=== PATIENT | male | born 1965 | race Caucasian/White ===

== ENCOUNTER → 2018-01-17 11:05 | Outpatient (CLI) | payer MEDICARE, SELFPAY ==
[2018-01-17 13:13] LABS: AST(SGOT) 21 U/L (15-37); Alanine Aminotransfer ALT/SGPT 38 U/L (16-61); Albumin, Serum 3.9 g/dL (3.2-5.0); Alkaline Phosphatase 95 U/L (45-117); Anion Gap 10 (5-15); BUN 21 mg/dL (7-18); BUN/Creat Ratio 31.7 RATIO (10-20); Calcium,Total 8.9 mg/dL (8.5-10.1); Chloride 102 mmol/L (98-107); Cholesterol 182 mg/dL (200); Creatinine, Serum 0.66 mg/dL (0.70-1.30); EST Glomerular Filtration Rate 135 mL/min (>60); Est Glom Filt Rate - Afr Amer 163 mL/min (>60); Globulin 3.9 g/dL (2.2-4.2); Glucose 103 mg/dL (74-106); High Density Lipoprotein 36 mg/dL; Potassium 3.7 mmol/L (3.5-5.1); Protein, Total 7.8 g/dL (6.4-8.2); Sodium Level 137 mmol/L (136-145); Triglycerides 159 mg/dL; Very Low Density Lipoprotein 32 mg/dL (5-40)
== END ==
PROVIDERS: Family Provider Family Medicine; PCP Family Medicine; Visit Provider Family Medicine
DX: E11.65 Type 2 diabetes mellitus with hyperglycemia (principal)
CPT/HCPCS: 36415; 80053; 80061; 84443

== ENCOUNTER 2018-03-23 09:55 | Outpatient (RCR) | payer MEDICARE, SELFPAY ==
--- NOTE | 2018-03-23 10:52 | HP.PTEVAL_ITS ---
Patient's Visit Information RADHA DEL CID is a 52 year old M referred to Physical Therapy by Missael Mortensen with a diagnosis of Paraplegia. 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 He has had many chairs and this one was 5 years old as of March 17. This chair is falling apart- it has been fixed many times and there are bolts/nuts that are no longer fixable. He is frustrated with the process but knows its necessary. He lives I in a first floor handicapped accessible apartment. He drives and is fully I in his chair. He has no home health aides. He does all his own cooking, cleaning and laundry. He is using motion mobility for his new chair. Does have pain in the back sometimes due to his scoliosis. He performs all transfers using his upper body no slide board or lifts. - Objective Posture: FH, RS- does slump to the left due to scoliotic curve. Gait: patient is non ambulatory- bilateral AKA. Transfers: transfers mostly to the left side or forwards- uses upper body to lift and propel himself to the other surface. Observation: more stump on the right vs. left and pants on ripped where the right LE rubs on the wheel of the chair. Propulsion of w/c: I with bilateral UE. ROM: WFL- right hip is rotated out and pt reports hip dysplasia- He can obtain a flat position but does have significant scoliotic curve. UE: WNL in all planes. Strength: UE: 5/5 throughout shoulder/elbow/wrist and clinical quality assurance associate is WNL. Scap: fair Core: fair - Goals Goal 1:: Patient will obtain a new w/c that is custom fit to address all needs. Goal Time Frame: 4-6 Weeks - Rehabilitation Potential Physical Therapy Diagnosis: Patient presents with hypomobility- he has decreased mobility secondary to AKA and need for a new w/c. Rehabilitation Potential: Good - Anticipated Interventions Thank you for the opportunity to evaluate your patient. For Medicare and Medicare HMO plans, please review the plan of care and approve it. It will need to be FAXED BACK to us at [phone] for Medicare purposes. Please let me know if there are questions or concerns regarding this plan of care. Physician Signature: Date:
--- NOTE | 2018-04-20 08:43 | HP.PT.NRP ---
HP - Discharge Summary (1) - Patient Information RADHA DEL CID was seen in my office for initial evaluation on 03/23/18. The following Plan of Care was established for this patient: Initial Frequency: 1x/Week Initial Duration: 1 Week This patient was last seen in our office . Pertinent comments regarding their Physical therapy will appear below: At this point I will be discontinuing this patient from physical therapy. I would be happy to see this patient again in the future if found appropriate by the physician. Thank you! Winnie Salamanca
== END 2018-03-23 19:00 | disposition home or self-care (01) ==
LOC: PT 09:55
PROVIDERS: Family Provider Family Medicine; PCP Family Medicine; Visit Provider Family Medicine
DX: G82.20 Paraplegia, unspecified (principal)
CPT/HCPCS: 97161

== ENCOUNTER → 2018-04-18 11:06 | Outpatient (CLI) | payer MEDICARE, SELFPAY ==
[2018-04-18 12:32] LABS: Anion Gap 8 (5-15); BUN 28 mg/dL (7-18); BUN/Creat Ratio 31.4 RATIO (10-20); Calcium,Total 9.2 mg/dL (8.5-10.1); Chloride 104 mmol/L (98-107); Cholesterol 159 mg/dL (200); Creatinine, Serum 0.89 mg/dL (0.70-1.30); EST Glomerular Filtration Rate 95 mL/min (>60); Est Glom Filt Rate - Afr Amer 115 mL/min (>60); Glucose 94 mg/dL (74-106); High Density Lipoprotein 33 mg/dL; Potassium 3.8 mmol/L (3.5-5.1); Sodium Level 138 mmol/L (136-145); Triglycerides 156 mg/dL; Very Low Density Lipoprotein 31 mg/dL (5-40)
== END ==
PROVIDERS: Family Provider Family Medicine; PCP Family Medicine; Visit Provider Family Medicine
DX: E78.00 Pure hypercholesterolemia, unspecified (principal); E11.65 Type 2 diabetes mellitus with hyperglycemia; I10 Essential (primary) hypertension
CPT/HCPCS: 80048; 80061

== ENCOUNTER → 2018-09-29 19:58 | Outpatient (CLI) | payer MEDICARE, SELFPAY ==
[2018-09-29 20:13] LABS: Color, Urine Yellow (Yellow); Glucose, Dipstick Normal (Normal); Ketone-Dipstick 5 mg/dl (Negative); Leukocyte Esterase-Dipstick 500 /ul (Negative); Nitrite-Dipstick Negative (Negative); Occult Blood-Urine 250 /ul (Negative); Protein-Dipstick 100 mg/dl (Negative); Specific Gravity, Urine 1.015 (1.002-1.030); Urine Bilirubin Dipstick Negative (Negative); Urine Clarity Cloudy (Clear); Urine Urobilinogen 1 mg/dl (Normal)
--- OUTSIDE RECORDS SUMMARY | 2018-11-24 23:38 | XMS RPT_ITS ---
:1965 Author Organization [facility] Care Team Providers Name Role Phone Missael Mortensen Attending Unavailable Missael Mortensen Primary Care Unavailable Missael Mortensen Attending Unavailable Missael Mortensen Primary Care Unavailable Missael Mortensen Referring Unavailable Missael Mortensen Attending Unavailable Missael Mortensen Primary Care Unavailable Missael Mortensen Attending Unavailable Missael Mortensen Primary Care Unavailable Missael Mortensen Referring Unavailable PROBLEMS PROBLEMS DATE TYPE CONDITION / CODE ATTENDING STATUS SOURCE 09/30/2018 Unknown 596.54 - Neurogenic [place], Active [place] bladder NOS / [facility] 596.54(ICD-9) Hospital Repository 09/30/2018 Unknown 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 CLEAN CATCH TYPE CODE TESTS RESULT OUT OF RANGE REFERENCE UNITS LAB L400.3000 Yellow COLOR Normal Yellow LAB L400.3050 Clear Normal CLARITY Cloudy LAB L400.3200 Normal mg/dl Normal GLUCOSE, UR Normal LAB L400.3300 Negative mg/dL Normal BILIRUBIN URINE Negative LAB L400.3400 Negative mg/dl High 5 KETONE UR LAB L400.3465 1.002-1.030 Normal SP.GR. DIPSTX 1.015 LAB L400.3550 5.0 - 8.0 pH UR Normal 6.0 LAB L400.3600 Negative mg/dl High PROT DIPSTX 100 LAB L400.3700 Normal mg/dl High 1 UROBILI LAB L400.3750 Negative Normal NITRITE UR Negative LAB L400.3780 Negative /ul High OCCULT BLOOD-UR 250 LAB L400.3800 Negative /ul High LEUK ESTERASE 500 Performed By: #### L400.2010 #### [facility] [address] [place], [address] Observed: 09/29/2018 Status: F Source: [place] CULTURE, URINE 4:00 PM [facility] REPOSITORY Urine Culture ORGANISM 1: Acinetobacter baumannii [place] Count >100,000 Acinetobacter baumannii: REACTION Cefepime $ 4 S Ceftazidime *NF 8 S Ceftriaxone $ 16 I Ciprofloxacin $ <=0.25 S Gentamicin $ <=1 S Imipenem *NF <=0.25 S Levofloxacin $ <=0.12 S Tobramycin $ <=1 S Trimethoprim/Sulfametho $ <=20 S (NF) indicates non-formulary drug at [facility]. Approval by Infectious Disease Specialist required before non-formulary drugs may be ordered and/or dispensed. Performed By: #### M100.0650 #### [facility] [address] [place], [address] BASIC METABOLIC Collected: 04/18/2018 Status: F Source: [place] PROFILE (BMP) 11:08 AM [facility] REPOSITORY Order Comment: Order Date: 04/18/18 Order Info: [id number] - BMP Order Info: [id number] - LIPID TYPE CODE TESTS RESULT OUT OF RANGE REFERENCE UNITS LAB L501.0100 74-106 mg/dL Normal GLU 94 Result Comment: Please note revised GLUCOSE reference range effective 2017. LAB L501.1000 7-18 mg/dL High BUN 28 LAB L501.1100 0.70-1.30 mg/dL Normal CREAT,SERUM 0.89 Result Comment: The validity of the calculated GFR AND GFRAA in patients over 70 years has not been determined. Clinical correlation is essential. LAB L501.1110 >60 mL/min Normal EST GFR 95 Result Comment: Non- GFR Calc LAB L501.1115 >60 mL/min Normal EST GFR - AA 115 Result Comment: GFR Calc LAB L501.1300 10-20 RATIO High BUN/CRE 31.4 LAB L501.2200 8.5-10.1 mg/dL CA Normal 9.2 LAB L501.5300 136-145 mmol/L NA Normal 138 LAB L501.5600 3.5-5.1 mmol/L K Normal 3.8 LAB L501.5900 98-107 mmol/L CL Normal 104 LAB L501.6100 21.0-32.0 mmol/L Normal CO2 26.0 LAB L501.6200 5-15 Normal GAP 8 Performed By: #### L500.2500, L500.4100 #### [facility] [address] [place], [address] LIPID PROFILE Collected: 04/18/2018 Status: F Source: [place] 11:08 AM [facility] REPOSITORY Order Comment: Order Date: 04/18/18 Order Info: [id number] - BMP Order Info: [id number] - LIPID TYPE CODE TESTS RESULT OUT OF RANGE REFERENCE UNITS LAB L501.4900 200 mg/dL Normal CHOL 159 Result Comment: <200 mg/dL Desirable 200-240 mg/dL Borderline >240 mg/dL High Risk LAB L501.5000 mg/dL Normal TRIG 156 Result Comment: The drugs N-Acetylcysteine and Metamizole may falsely depress this assay. Serum Triglycerides Reference Interval Normal <150 mg/dL Borderline high 150 - 199 mg/dL High 200 - 499 mg/dL Very High > or = 500 mg/dL LAB L501.6400 mg/dL Low HDL 33 Result Comment: The drugs N-Acetylcysteine and Metamizole may falsely depress this assay. Reference Range HDL <40 mg/dL Low HDL Cholesterol HDL >or= 60 mg/dL High HDL Cholesterol LAB L501.6500 0-130 mg/dL Normal LDL 95 LAB L501.6600 5-40 mg/dL Normal VLDL 31 Performed By: #### L500.2500, L500.4100 #### [facility] [address] [place], [address] INITAL EVALUATION (1) Observed: 03/23/2018 Status: F Source: [place] - PT 10:52 AM [facility] REPOSITORY [facility] [address] [place], [place] [address] Fax REHABILITATION SERVICES INITIAL EVALUATION MR#: [id number] Acct: [id number] Name: ZAC DEL CID Rep #: [id number] : 1965 52 From: Winnie Salamanca DPT Referring Dr.: Missael Mortensen MD Status: REG RCR Insurance: MEDICARE PART A B SELF PAY INSURANCE Patient's Visit Information ZAC DEL CID is a 52 year old M referred to Physical Therapy by Missael Mortensen with a diagnosis of Paraplegia. 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 He has had many chairs and this one was 5 years old as of March 17. This chair is falling apart- it has been fixed many times and there are bolts/nuts that are no longer fixable. He is frustrated with the process but knows its necessary. He lives I in a first floor handicapped accessible apartment. He drives and is fully I in his chair. He has no home health aides. He does all his own cooking, cleaning and laundry. He is using motion mobility for his new chair. Does have pain in the back sometimes due to his scoliosis. He performs all transfers using his upper body no slide board or lifts. - Objective Posture: FH, RS- does slump to the left due to scoliotic curve. Gait: patient is non ambulatory- bilateral AKA. Transfers: transfers mostly to the left side or forwards- uses upper body to lift and propel himself to the other surface. Observation: more stump on the right vs. left and pants on ripped where the right LE rubs on the wheel of the chair. Propulsion of w/c: I with bilateral UE. ROM: WFL- right hip is rotated out and pt reports hip dysplasia- He can obtain a flat position but does have significant scoliotic curve. UE: WNL in all planes. Strength: UE: 5/5 throughout shoulder/elbow/wrist and dressmaker garment fitter is WNL. Scap: fair Core: fair - Goals Goal 1:: Patient will obtain a new w/c that is custom fit to address all needs. Goal Time Frame: 4-6 Weeks - Rehabilitation Potential Physical Therapy Diagnosis: Patient presents with hypomobility- he has decreased mobility secondary to AKA and need for a new w/c. Rehabilitation Potential: Good - Anticipated Interventions Thank you for the opportunity to evaluate your patient. For Medicare and Medicare HMO plans, please review the plan of care and approve it. It will need to be FAXED BACK to us at [phone] for Medicare purposes. Please let me know if there are questions or concerns regarding this plan of care. Physician Signature: Date: <Electronically signed by Winnie Salamanca DPT> 03/23/18 1052 CC: Missael Mortensen MD ELR Signed For Medicare only, by signing this I certify the plan of care. Physicians Signature Date COMPREHENSIVE METABOLIC Collected: 01/17/2018 Status: F Source: [place] WONG 11:10 AM [facility] REPOSITORY Order Comment: Order Date: 10/05/17 Order Info: [id number] - CMP Order Info: [id number] - LIPID Order Info: [id number] - TSH TYPE CODE TESTS RESULT OUT OF RANGE REFERENCE UNITS LAB L501.0100 74-106 mg/dL Normal GLU 103 Result Comment: Fasting Glucose result from 100 to 125 mg/dL suggests IMPAIRED HOMEOSTASIS per A.D.A. criteria. Please note revised GLUCOSE reference range effective 2017. LAB L501.1000 7-18 mg/dL High BUN 21 LAB L501.1100 0.70-1.30 mg/dL Low CREAT,SERUM 0.66 Result Comment: The validity of the calculated GFR AND GFRAA in patients over 70 years has not been determined. Clinical correlation is essential. LAB L501.1110 >60 mL/min Normal EST GFR 135 Result Comment: Non- GFR Calc LAB L501.1115 >60 mL/min Normal EST GFR - AA 163 Result Comment: GFR Calc LAB L501.1300 10-20 RATIO High BUN/CRE 31.7 LAB L501.1500 6.4-8.2 g/dL T Normal PROT 7.8 LAB L501.1800 3.2-5.0 g/dL Normal ALB 3.9 LAB L501.1950 2.2-4.2 g/dL Normal GLOB 3.9 LAB L501.2000 0.9-2.4 RATIO Normal A/G 1.0 LAB L501.2200 8.5-10.1 mg/dL CA Normal 8.9 LAB L501.4100 15-37 U/L Normal AST 21 LAB L501.4305 45-117 U/L Normal ALK P 95 LAB L501.4405 16-61 U/L Normal ALT 38 Result Comment: Please note revised ALT reference range effective 2017. LAB L501.4600 0.20-1.00 mg/dL Normal T BILI 0.40 LAB L501.5300 136-145 mmol/L Normal NA 137 LAB L501.5600 3.5-5.1 mmol/L Normal K 3.7 LAB L501.5900 98-107 mmol/L Normal CL 102 LAB L501.6100 21.0-32.0 mmol/L Normal CO2 25.0 LAB L501.6200 5-15 Normal GAP 10 Performed By: #### L500.4050, L500.4100, L501.9520 #### [facility] [address] [place], [address] LIPID PROFILE Collected: 01/17/2018 Status: F Source: [place] 11:10 AM [facility] REPOSITORY Order Comment: Order Date: 10/05/17 Order Info: [id number] - CMP Order Info: [id number] - LIPID Order Info: [id number] - TSH TYPE CODE TESTS RESULT OUT OF RANGE REFERENCE UNITS LAB L501.4900 200 mg/dL Normal CHOL 182 Result Comment: <200 mg/dL Desirable 200-240 mg/dL Borderline >240 mg/dL High Risk LAB L501.5000 mg/dL Normal TRIG 159 Result Comment: The drugs N-Acetylcysteine and Metamizole may falsely depress this assay. Serum Triglycerides Reference Interval Normal <150 mg/dL Borderline high 150 - 199 mg/dL High 200 - 499 mg/dL Very High > or = 500 mg/dL LAB L501.6400 mg/dL Low HDL 36 Result Comment: The drugs N-Acetylcysteine and Metamizole may falsely depress this assay. Reference Range HDL <40 mg/dL Low HDL Cholesterol HDL >or= 60 mg/dL High HDL Cholesterol LAB L501.6500 0-130 mg/dL Normal LDL 114 LAB L501.6600 5-40 mg/dL Normal VLDL 32 Performed By: #### L500.4050, L500.4100, L501.9520 #### [facility] [address] [facility] [place], [place], [address] THYROID STIM HORMONE Collected: 01/17/2018 Status: F Source: [place] (TSH) 11:10 AM [facility] REPOSITORY Order Comment: Order Date: 10/05/17 Order Info: [id number] - CMP Order Info: [id number] - LIPID Order Info: [id number] - TSH TYPE CODE TESTS RESULT OUT OF RANGE REFERENCE UNITS LAB L501.9520 0.358-3.74 uIU/mL Normal TSH 2.40 Performed By: #### L500.4050, L500.4100, L501.9520 #### [facility] [address], [place], [address] ALLERGIES ALLERGIES No Allergies Records FoundENCOUNTERS ENCOUNTERS ADMIT/DISCHARGE ACCOUNT ADMITTING ENCOUNTER [facility] 09/29/2018 [id number] Ambulatory [address]:LABSPEC Repository 04/18/2018 [id number] Ambulatory [place] [facility] ing:MFPLAB Repository 03/23/2018/ [id number] Ambulatory [place] [facility] ing:PT Repository 01/17/2018 [id number] Ambulatory [place] 0 [facility] ing:MFPLAB Repository PAYERS PAYERS ENCOUNTER GUARANTOR PAYER SUBSCRIBER SOURCE 09/29/2018 Zac O Primary Zac Jarrell [id number] Old Insurance:MEDICARE DayeDOB: [facility] [id number] Number: Repository [id number]: 330 [id number] [phone] () Date:2018-09-29 09/29/2018 Secondary NOT GIVENUNK [place] Insurance:SELF PAY [facility] [place] Number: Effective Repository Date:2018-09-29 04/18/2018 Zac O Primary Zac Jarrell [id number] Old Insurance:MEDICARE DayeDOB: [facility] [id number], [place] Number: Repository [id number]: 330 [id number] [phone] () Date:2018-04-18 04/18/2018 Secondary NOT GIVENUNK [place] Insurance:SELF PAY [facility] [place]) Number: Effective Repository Date:2018-04-18 03/23/2018 Zac O Primary Zac Jarrell [id number] Old Insurance:MEDICARE DayeDOB: [facility] [id number], [place] Number: Repository [id number]: 330 [id number] [phone] () Date:2012-12-30 03/23/2018 Secondary NOT GIVENUNK [place] Insurance:SELF PAY [facility], [place]) Number: Effective Repository Date:2018-03-17 01/17/2018 Zac O Primary Zac Jarrell [id number] Old Insurance:MEDICARE DayeDOB: [facility] [id number] Number: Repository [id number]: [phone] [id number] [phone] () Date:2018-01-17 01/17/2018 Secondary NOT GIVENUNK [place] Insurance:SELF PAY [facility]: Effective Repository Date:2018-01-17
== END ==
PROVIDERS: Family Provider Family Medicine; PCP Family Medicine; Referring Provider Family Medicine; Visit Provider Family Medicine
DX: N31.9 Neuromuscular dysfunction of bladder, unspecified (principal)
CPT/HCPCS: 81002; 87077; 87086; 87088; 87186

== ENCOUNTER → 2018-12-06 09:26 | Outpatient (CLI) | payer MEDICARE, SELFPAY ==
--- NOTE | 2018-12-06 09:31 | RAD_ITS ---
STUDY: X-RAY - LUMBAR SPINE REASON FOR EXAM: Male, 52 years old. Back pain and right hip pain. TECHNIQUE: 3 AP view(s) of the lumbar spine were obtained. COMPARISON: None FINDINGS: . There is a marked levoscoliosis of the lumbar spine. Prior Monteiro uzma fixation. There is evidence of a fracture through the 2 Monteiro rods at the level of the T12-L1 level. Normal vertebral bodies and endplates. There is multi-level degenerative disc disease with multi-level disc space narrowing. The soft tissue structures are unremarkable. RAD/L/S Spine Min 4 Views IMPRESSION: Moderate degree of the levoscoliosis. Fracture of the Monteiro uzma fixation device at the T12-L1 level. Electronically Signed: Michael Disla MD at 15:04 EST , Service support ,
== END ==
PROVIDERS: Family Provider Family Medicine; PCP Family Medicine; Referring Provider Family Medicine; Visit Provider Family Medicine
DX: M54.40 Lumbago with sciatica, unspecified side (principal)
CPT/HCPCS: 72110

== ENCOUNTER → 2019-01-27 15:42 | Outpatient (CLI) | payer MEDICARE, SELFPAY ==
--- NOTE | 2019-01-27 15:51 | RAD_ITS ---
STUDY: X-RAY CHEST REASON FOR EXAM: Male, 53 years old. Chest tightness. Acute bronchitis. TECHNIQUE: AP and lateral views of the chest. COMPARISON: Comparison is made with prior study dated March 05, 2016. FINDINGS: Elevation of the right hemidiaphragm. Increased markings with areas of confluence of the right lung base suggestive of right basilar atelectasis and/or early infiltrate. The left lung is clear. There is no demonstrated pleural abnormality. Normal size heart. Normal mediastinum and justin. Normal visualized pulmonary arteries. Normal visualized aortic arch and descending thoracic aorta. Prior Lupe uzma fixation of the lower thoracic and upper lumbar vertebrae. Normal visualized ribs, clavicles, and shoulders. There is no demonstrated abnormality of the visualized soft tissue structures of the upper abdomen. RAD/Chest PA and Lateral IMPRESSION: Elevation of the right hemidiaphragm with right basilar atelectasis and/or infiltrate. Electronically Signed: Michael Disla, at 8:40 EDT , Service support ,
== END ==
PROVIDERS: Family Provider Family Medicine; PCP Family Medicine; Referring Provider Family Medicine; Visit Provider Family Medicine
DX: J20.9 Acute bronchitis, unspecified (principal)
CPT/HCPCS: 71046

== ENCOUNTER 2019-03-17 06:39 | Inpatient (IN) | payer MEDICARE, SELFPAY ==
[2019-03-17] VITALS (22 sets, daily range): BP systolic 100–160; BP diastolic 65–97; PULSE 80–102; RESP 12–18; TEMP 36.5–36.8; O2SAT 95–97; BMI 116.8; BMI 81.2
--- NOTE | 2019-03-17 06:57 | EKG12_ITS ---
Test Reason : CP Blood Pressure : / mmHG Vent. Rate : 096 BPM Atrial Rate : 096 BPM P-R Int : 126 ms QRS Dur : 082 ms QT Int : 322 ms P-R-T Axes : 072 142 112 degrees QTc Int : 406 ms Sinus rhythm with occasional Premature ventricular complexes Right axis deviation Low voltage QRS Nonspecific ST and T wave abnormality Abnormal ECG Confirmed by LIN CARRANZA, BONITA ([id number]), science editor SHAISTA ASHER ([id number]) on 03/20/2019 4:06:49 PM Referred By: MARLENE Confirmed By:BONITA CEBALLOS MD
[2019-03-17 07:05] LABS: Absolute Lymphocyte Count 4.07 X10^3/ul (0.83-4.51); Absolute Neutrophil Count 6.8 X10^3/uL (2.0-7.7); Basophil# 0.06 X10^3/uL; Basophil% 0.5 % (0-1); Eosinophil# 0.19 X10^3/uL; Eosinophils% 1.6 % (0-5); Hematocrit 45.9 % (40-54); Lymphocyte # 4.07 X10^3/ul (4.0); Lymphocyte % 33.3 % (19-41); Mean Corp Hgb Conc 34.9 g/gl (32-36); Mean Corpuscular Hgb 30.8 pg (27.0-32.0); Mean Corpuscular Volume 88.4 fL (80-94); Mean Platelet Vol. 10.5 fl (6.2-12.0); Monocyte# 1.06 X10^3/uL; Monocyte% 8.7 % (0-10); Neutrophil # 6.81 X10^3/uL (2.7-7.7); Neutrophil % 55.6 % (47-70); Platelet Count 319 K/mm3 (150-450); RBC Distribution Width CV 12.5 % (11.6-14.6); RBC Distribution Width SD 40.4 fl (35.1-43.9); Red Blood Count 5.19 M/mm3 (4.6-6.2); White Blood Count 12.2 K/mm3 (4.4-11.0)
[2019-03-17 07:10] LABS: POSITIVE COUNT NO; POSITIVE DIFFERENTIAL NO; POSITIVE MORPHOLOGY NO
--- NOTE | 2019-03-17 07:15 | RAD_ITS ---
HISTORY: Chest Pain EXAM:XR Chest 1 View portable COMPARISON: 01/27/2019 FINDINGS: EKG leads in place. Portable lordotic technique. No significant change. Chronic moderate elevation of the right hemidiaphragm with secondary hypoventilation of the right lung base. The left lung appears clear. The heart appears unchanged in size. No acute infiltrates seen. No overt vascular congestion. Lower thoracic Monteiro rods in place. RAD/Chest 1 View (Portable) IMPRESSION: 1. No acute cardiopulmonary disease. No significant interval change. 2. Chronic elevation of the right hemidiaphragm. at 0743 Reported and signed by: Madi Elizondo MD Electronically Signed: Madi Elizondo, at 7:42 EDT Tel , Service support ,
[2019-03-17 07:21] LABS: Anion Gap 6 (5-15); BUN 20 mg/dL (7-18); BUN/Creat Ratio 23.8 RATIO (10-20); Calcium,Total 9.2 mg/dL (8.5-10.1); Chloride 104 mmol/L (98-107); Creatinine, Serum 0.84 mg/dL (0.70-1.30); EST Glomerular Filtration Rate 102 mL/min (>60); Est Glom Filt Rate - Afr Amer 123 mL/min (>60); Estimated Creatinine Clearance 142.16 ml/min; Glucose 142 mg/dL (74-106); Potassium 3.7 mmol/L (3.5-5.1); Sodium Level 138 mmol/L (136-145)
[2019-03-17] MEDS: Nitroglycerin SL (ED/IMG/CATH) 0.4 MG TABLET SUBLINGUAL (07:27)
[2019-03-17] MEDS: Aspirin 81 MG TAB.CHEW 324 MG PO (07:27)
--- NOTE | 2019-03-17 07:36 | ED.VIS.GEN ---
History of Present Illness Chief Complaint: Chest Pain Informant: Patient Onset: Today - 29 Context: Sudden Onset Timing: Continuous Quality: Central dull ache with bilateral shoulder pain Current Severity: Moderate Maximum Severity: Severe Worsened by: Nothing patient wheelchair confined Relieved by: Nothing Associated Symptoms: Belching, diaphoresis and slight nausea Narrative: Patient is a middle-aged gentleman with history of diabetes, hypertension, hypercholesterolemia and is a smoker 1 pack/day x 40 years who presents with belching followed by diaphoresis and chest discomfort. Onset of belching 0030. 1 hour later he developed diaphoresis and central chest discomfort with radiation to both shoulders. He had mild nausea He does have history of GERD and states this is different. he is still having discomfort. He denies history of pulmonary embolus or DVT. He denies black or maroon stool. He has no contraindication to anticoagulation. Prior similar symptoms: No Recent Illness/Hospitalization: No - Past Medical History (1) History of hypertension Status: Acute (2) History of hypercholesterolemia Status: Acute (3) History of type 2 diabetes mellitus Status: Acute Past Medical History - Allergies and Home Meds Allergies/Adverse Reactions: Allergies ceftriaxone [From Rocephin] Allergy (Verified 03/17/19 06:40) Hives ciprofloxacin [From Cipro] Allergy (Verified 03/17/19 06:40) Hives Primary Care Physician: Bebeto Mortensen MD [Primary Care Provider] - Prior records reviewed: Yes Surgical History: noncontributory Lives: Alone Smoking Status: Current every day smoker Drugs: None Review of Systems General: Reports: Sweats. Denies: Chills, Fever, Malaise, Subjective, Weight loss, - Eyes: Denies: Visual changes - bilaterally, Blurred Vision - bilaterally ENT: Denies: Bilateral ear pain, Rhinorrhea, Sore throat Cardiovascular: Reports: Chest pain. Denies: Palpitations, Heart racing Respiratory: Denies: Dyspnea, Cough, Sputum, Dyspnea on exertion, Orthopnea, Paroxysmal nocturnal dyspnea, -, - Gastrointestinal: Denies: Abdominal pain, Nausea, Vomiting, Diarrhea, Constipation, Melena, Hematochezia, -, - Genitourinary: Denies: Dysuria, Hematuria, Frequency Musculoskeletal: Denies: Myalgias, Arthralgias, Neck pain, Back pain, Swelling, Extremity Pain, -, - Skin: Denies: Rash Neurological: Denies: Weakness, Parasthesia, Numbness Hematologic: Denies: Easy bruising, Easy bleeding Allergy: Denies: Uticaria Physical Exam Vital Signs/Narrative: Vital Signs Temp Pulse Resp BP Pulse Ox 03/17/19 07:05 97 03/17/19 06:41 97.7 F L 97 16 153/87 H 97 Inital Vital Signs reviewed: Yes General: Well nourished, Well developed, No Acute Distress Head: Normocephalic, Atraumatic Eyes: Perrl, EOMI ENT: Moist mucous membranes, No rhinorrhea Neck: Supple, Nontender Cardiovascular: Regular rate, Regular rhythm, No murmurs, Normal S1, Normal S2 Respiratory: No distress, CTA bilaterally, Chest nontender Abdomen: Soft, Nontender, Nondistended, Normal bowel sounds Back: Nontender, Normal Inspection Extremities: - - Bilateral above-knee amputation. Upper extremity exam is normal with no neurovascular findings. Skin: Normal color, No rash, No Trauma. Negative for: Cyanosis, Jaundice Neurological: Alert, Oriented x3, Cranial nerves II-XII grossly intact, Normal Strength, Normal Sensation. Negative for: Normal DTR, Normal Gait Psychological: Normal affect, Normal Mood Diagnostic/Tx/Re-eval Chest X-Ray - ED: 1 View, Read by ED Physician, Normal, Heart, Mediastinum, Bony Structures, No Acute Disease, - - The right hemidiaphragm is elevated significantly. Inspiratory volume is limited. Monteiro rods noted. No evidence of effusion or pneumothorax. 03/17/19 07:15 Chest 1 View (Portable) [RAD] Stat Laboratory Results 03/17/19 03/17/19 06:43 06:43 WBC 12.2 H RBC 5.19 Hgb 16.0 Hct 45.9 MCV 88.4 MCH 30.8 MCHC 34.9 RDW 12.5 RDW Differential 40.4 Plt Count 319 MPV 10.5 Immature Gran % (Auto) 0.300 Neut % (Auto) 55.6 Lymph % (Auto) 33.3 [place] % (Auto) 8.7 Eos % (Auto) 1.6 Baso % (Auto) 0.5 Absolute Neuts (auto) 6.8 Absolute Lymphs (auto) 4.07 Total Counted Not Reportable Sodium 138 Potassium 3.7 Chloride 104 Carbon Dioxide 28.0 Anion Gap 6 BUN 20 H Creatinine 0.84 Estim Creat Clear Calc 142.16 Est GFR (MDRD) Af Amer 123 Est GFR (MDRD) Non-Af 102 BUN/Creatinine Ratio 23.8 H Glucose 142 H Calcium 9.2 Troponin I 2.450 H* - Rhythm Strip Rhythm Strip: Sinus Rhythm Rate: 96 Ectopy: None - EKG Initial EKG Interpretation: Sinus Rhythm - Ventricular rate 96. There is no ossific ST-T wave changes noted. There is also slight motion artifact. NV interval, Q adventism and QT interval are normal. [place] to the right. - Medical Decision Making Patient presents with chest discomfort that is concerning. Eyes ratio 91 because of radiation to both shoulders. He also has multiple risk factors. He is not low risk. Patient was treated with aspirin and nitroglycerin initially. Patient reported improvement after nitroglycerin sublingual. He was started on nitroglycerin drip. He was administered 180 mg of Brilinta after discussion with Dr. Larry Anderson. There was discussion regarding anticoagulation. He requested not to administer heparin or Lovenox until this determine when he would go to the Day Worker. Differential diagnosis cardiac chest pain, pulmonary etiology i.e. pulmonary embolus, GERD since he has history. May also represent biliary. With elevated troponin concern patient has non-STEMI. As previously documented case discussed with hospitalist and log truck driver. - Critical Care Time Critical care time (excluding procedures): 30-74 minutes, Discussing w/Patient &/or Family/Audio/Video Engineer, Discussing w/Consultants, Arranging Admission or Transfer - Critical care time 32 minutes ED Disposition - Plan for ED Patient: Disposition: Acute Care Hospital [facility] Diagnosis: Non-STEMI (non-ST elevated myocardial infarction), History of hypertension, History of hypercholesterolemia, History of type 2 diabetes mellitus Referrals: Bebeto Mortensen MD [Primary Care Provider] -
--- NOTE | 2019-03-17 07:41 | ED.DCSUM_ITS ---
History of Present Illness Chief Complaint: Chest Pain Informant: Patient Onset: Today - 29 Context: Sudden Onset Timing: Continuous Quality: Central dull ache with bilateral shoulder pain Current Severity: Moderate Maximum Severity: Severe Worsened by: Nothing patient wheelchair confined Relieved by: Nothing Associated Symptoms: Belching, diaphoresis and slight nausea Narrative: Patient is a middle-aged gentleman with history of diabetes, hypertension, hypercholesterolemia and is a smoker 1 pack/day x 40 years who presents with belching followed by diaphoresis and chest discomfort. Onset of belching 0030. 1 hour later he developed diaphoresis and central chest discomfort with radiation to both shoulders. He had mild nausea He does have history of GERD and states this is different. he is still having discomfort. He denies history of pulmonary embolus or DVT. He denies black or maroon stool. He has no contraindication to anticoagulation. Prior similar symptoms: No Recent Illness/Hospitalization: No - Past Medical History (1) History of hypertension Status: Acute (2) History of hypercholesterolemia Status: Acute (3) History of type 2 diabetes mellitus Status: Acute Past Medical History - Allergies and Home Meds Allergies/Adverse Reactions: Allergies ceftriaxone [From Rocephin] Allergy (Verified 03/17/19 06:40) Hives ciprofloxacin [From Cipro] Allergy (Verified 03/17/19 06:40) Hives Primary Care Physician: Bebeto Mortensen MD [Primary Care Provider] - Prior records reviewed: Yes Surgical History: noncontributory Lives: Alone Smoking Status: Current every day smoker Drugs: None Review of Systems General: Reports: Sweats. Denies: Chills, Fever, Malaise, Subjective, Weight loss, - Eyes: Denies: Visual changes - bilaterally, Blurred Vision - bilaterally ENT: Denies: Bilateral ear pain, Rhinorrhea, Sore throat Cardiovascular: Reports: Chest pain. Denies: Palpitations, Heart racing Respiratory: Denies: Dyspnea, Cough, Sputum, Dyspnea on exertion, Orthopnea, Paroxysmal nocturnal dyspnea, -, - Gastrointestinal: Denies: Abdominal pain, Nausea, Vomiting, Diarrhea, Constipation, Melena, Hematochezia, -, - Genitourinary: Denies: Dysuria, Hematuria, Frequency Musculoskeletal: Denies: Myalgias, Arthralgias, Neck pain, Back pain, Swelling, Extremity Pain, -, - Skin: Denies: Rash Neurological: Denies: Weakness, Parasthesia, Numbness Hematologic: Denies: Easy bruising, Easy bleeding Allergy: Denies: Uticaria Physical Exam Vital Signs/Narrative: Vital Signs Temp Pulse Resp BP Pulse Ox 03/17/19 07:05 97 03/17/19 06:41 97.7 F L 97 16 153/87 H 97 Inital Vital Signs reviewed: Yes General: Well nourished, Well developed, No Acute Distress Head: Normocephalic, Atraumatic Eyes: Perrl, EOMI ENT: Moist mucous membranes, No rhinorrhea Neck: Supple, Nontender Cardiovascular: Regular rate, Regular rhythm, No murmurs, Normal S1, Normal S2 Respiratory: No distress, CTA bilaterally, Chest nontender Abdomen: Soft, Nontender, Nondistended, Normal bowel sounds Back: Nontender, Normal Inspection Extremities: - - Bilateral above-knee amputation. Upper extremity exam is normal with no neurovascular findings. Skin: Normal color, No rash, No Trauma. Negative for: Cyanosis, Jaundice Neurological: Alert, Oriented x3, Cranial nerves II-XII grossly intact, Normal Strength, Normal Sensation. Negative for: Normal DTR, Normal Gait Psychological: Normal affect, Normal Mood Diagnostic/Tx/Re-eval Chest X-Ray - ED: 1 View, Read by ED Physician, Normal, Heart, Mediastinum, Bony Structures, No Acute Disease, - - The right hemidiaphragm is elevated significantly. Inspiratory volume is limited. Monteiro rods noted. No evidence of effusion or pneumothorax. 03/17/19 07:15 Chest 1 View (Portable) [RAD] Stat Laboratory Results 03/17/19 03/17/19 06:43 06:43 WBC 12.2 H RBC 5.19 Hgb 16.0 Hct 45.9 MCV 88.4 MCH 30.8 MCHC 34.9 RDW 12.5 RDW Differential 40.4 Plt Count 319 MPV 10.5 Immature Gran % (Auto) 0.300 Neut % (Auto) 55.6 Lymph % (Auto) 33.3 [place] % (Auto) 8.7 Eos % (Auto) 1.6 Baso % (Auto) 0.5 Absolute Neuts (auto) 6.8 Absolute Lymphs (auto) 4.07 Total Counted Not Reportable Sodium 138 Potassium 3.7 Chloride 104 Carbon Dioxide 28.0 Anion Gap 6 BUN 20 H Creatinine 0.84 Estim Creat Clear Calc 142.16 Est GFR (MDRD) Af Amer 123 Est GFR (MDRD) Non-Af 102 BUN/Creatinine Ratio 23.8 H Glucose 142 H Calcium 9.2 Troponin I 2.450 H* - Rhythm Strip Rhythm Strip: Sinus Rhythm Rate: 96 Ectopy: None - EKG Initial EKG Interpretation: Sinus Rhythm - Ventricular rate 96. There is no ossific ST-T wave changes noted. There is also slight motion artifact. [place] interval, Q worship and QT interval are normal. [place] to the right. - Medical Decision Making Patient presents with chest discomfort that is concerning. Eyes ratio 91 because of radiation to both shoulders. He also has multiple risk factors. He is not low risk. Patient was treated with aspirin and nitroglycerin initially. Patient reported improvement after nitroglycerin sublingual. He was started on nitroglycerin drip. He was administered 180 mg of Brilinta after discussion with Dr. Larry Anderson. There was discussion regarding anticoagulation. He requested not to administer heparin or Lovenox until this determine when he would go to the Beater Machine Operator. Differential diagnosis cardiac chest pain, pulmonary etiology i.e. pulmonary embolus, GERD since he has history. May also represent biliary. With elevated troponin concern patient has non-STEMI. As previously documented case discussed with hospitalist and golf shoe spike assembler. - Critical Care Time Critical care time (excluding procedures): 30-74 minutes, Discussing w/Patient &/or Family/Slat Twister, Discussing w/Consultants, Arranging Admission or Marte sfer - Critical care time 32 minutes ED Disposition - Plan for ED Patient: Disposition: Acute Care Hospital [facility] Diagnosis: Non-STEMI (non-ST elevated myocardial infarction), History of hypertension, History of hypercholesterolemia, History of type 2 diabetes mellitus Referrals: Bebeto Mortensen MD [Primary Care Provider] -
[2019-03-17] MEDS: TICAGRELOR 90 MG TABLET 180 MG PO (07:48)
[2019-03-17] MEDS: Nitroglycerin Infusion 250 ML 3 MG CONT INF (07:48)
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
--- NOTE | 2019-03-17 08:54 | NURSING ---
Nitro drip off per orders.
--- NOTE | 2019-03-17 10:40 | NURSING ---
called [facility] and verbally obtained patient's med list
--- NOTE | 2019-03-17 11:11 | DCINST_ITS ---
- Discharge Diagnoses Current Active Problems: Current Active and Chronic Problems History of hypertension (Chronic) History of hypercholesterolemia (Chronic) History of type 2 diabetes mellitus (Chronic) Non-STEMI (non-ST elevated myocardial infarction) (Acute) You will use the following diet at home:: Calorie/Carbohydrate Controlled (specify 1200, 1400, etc), Cardiac Your food should be the consistency of: Regular Your liquids should be the consistency of: Regular/Thin Call your doctor if you observe: Fever of 101 or Higher, Shortness of breath, Dizziness, Fainting spells, Swelling in the ankles, Chest pain, Increased palpitations (irregular heartbeat) Allergies/Adverse Reactions: Allergies ceftriaxone [From Rocephin] Allergy (Verified 03/17/19 06:40) Hives ciprofloxacin [From Cipro] Allergy (Verified 03/17/19 06:40) Hives Medications to take at Discharge Celecoxib [Celebrex] 200 mg PO DAILY 03/17/19 Glimepiride [Amaryl] 1 mg PO DAILY 03/17/19 Losartan/Hydrochlorothiazide [Losartan-Hctz 100-25 mg Tab] 1 each PO DAILY 03/17/19 Simvastatin [Zocor] 40 mg PO QHS 03/17/19 Primary Care Physician: Bebeto Mortensen MD [Primary Care Provider] - Please follow up with your Primary Care Physician in: 3-5 days Test Results: Test results from this visit will be discussed in further detail at your follow- up appointment, if applicable.
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
[2019-03-17 11:30] LABS: Absolute Lymphocyte Count 2.64 X10^3/ul (0.83-4.51); Absolute Neutrophil Count 9.9 X10^3/uL (2.0-7.7); Basophil# 0.04 X10^3/uL; Basophil% 0.3 % (0-1); Eosinophil# 0.07 X10^3/uL; Eosinophils% 0.5 % (0-5); Hematocrit 43.9 % (40-54); Hemoglobin 15.2 g/dl (13.0-16.5); Lymphocyte # 2.64 X10^3/ul (4.0); Lymphocyte % 19.3 % (19-41); Mean Corp Hgb Conc 34.6 g/gl (32-36); Mean Corpuscular Hgb 30.8 pg (27.0-32.0); Mean Corpuscular Volume 88.9 fL (80-94); Mean Platelet Vol. 10.2 fl (6.2-12.0); Monocyte# 1.02 X10^3/uL; Monocyte% 7.5 % (0-10); Neutrophil # 9.86 X10^3/uL (2.7-7.7); Neutrophil % 72.2 % (47-70); Platelet Count 288 K/mm3 (150-450); RBC Distribution Width CV 12.6 % (11.6-14.6); RBC Distribution Width SD 40.5 fl (35.1-43.9); Red Blood Count 4.94 M/mm3 (4.6-6.2); White Blood Count 13.7 K/mm3 (4.4-11.0)
[2019-03-17 11:32] LABS: POSITIVE COUNT NO; POSITIVE DIFFERENTIAL NO; POSITIVE MORPHOLOGY NO
[2019-03-17 14:51] LABS: Bedside Glucose 102 mg/dL (70-110)
[2019-03-17] MEDS: 0.9% Normal Saline 1,000 ML 50 ML IV (15:32)
[2019-03-17] MEDS: Metoprolol Tartrate 25 MG Tablet PO (15:32)
--- NOTE | 2019-03-17 15:40 | NURSING ---
called report to Cheryl in CVICU @ [facility]
--- NOTE | 2019-03-17 17:23 | CL.D_ITS ---
Patient Name: RADHA DEL CID Study Date: 03/17/2019 Performing: Larry Anderson MD Ht: 36 inches 91.44 cm : 1965 Wt: 150.2 lbs 68.03 kg Age: 53 Gender: male BSA: 1.14 PROCEDURE(S) PERFORMED [id number]/LV CLINICAL PROFILE AND INDICATIONS Indications: ACS <= 24 hrs Heart Failure: None Stress/Imaging Stress/Image Study Performed: No Angina Classification Anginal Classification w/in 2 Weeks: CCS IV CAD Presentations: STEMI. CONCLUSIONS Elevated Left Ventricular End Diastolic Pressure Segmented LV systolic dysfunction- Mild LVEF: by LV gram 45 % [place] Multivessel CAD Mitral Valve Insufficiency Mild RECOMMENDATIONS Risk factor modification Medical therapy [facility]ertiary [facility] evaluation for high risk multivesel PCI vs. CABG DESCRIPTION OF PROCEDURE The patient arrived to the procedure lab. The risks and benefits of the procedure as well as a full d escription of our services here and current unavailability of surgical backup were fully explained to the patient and/or their significant other prior to the catheterization. The Timeout was completed, verifying the correct patient and procedure. The patient's procedural site was prepped and draped in the usual fashion. Local anesthetic was given subcutaneously to right radial region with Lidocaine 2% . Using a modified Seldinger technique, arterial access was obtained via the right radial artery, a 6 Fr sheath was inserted. Right Coronary Artery selective angiography was then performed in multiple v iews using a 5 Fr. 4.0 [place] catheter. Left Coronary Artery selective angiography was performed in mu ltiple views using a 5 Fr. 4.0 [place] catheter. Left Ventriculography was performed in BARAJAS projection using a 5 Fr. Pig[place] catheter. LV to AO pullback pressures were then recorded.The arterial sheath was pulled and a TR Band was applied for hemostasis CORONARY ANGIOGRAPHY DOMINANCE: Left Dominant LEFT HEART ASSESSMENT Left Ventricular Ejection Fraction: by LV Gram 45 % Anterior Akinesis. Apical Akinesis. Inferior Mid Akinesis Elevated Left Ventricular End Diastolic Pressure LVEDP: 23 mmHg LEFT MAIN: Proximal: 50 - 75 % Stenosis LEFT ANTERIOR DESCENDING ARTERY: Mild luminal irregularities MID LAD: 95 % Stenosis DISTAL LAD: 50 % Stenosis CIRCUMFLEX ARTERY: Mild luminal irregularities OM 1: Proximal - 75 % Stenosis RIGHT CORONARY ARTERY: PROX RCA: is occluded with the mid to distal portion filling late, faintly, and partially from bridgi ng collaterals VALVE FINDINGS: Normal Aortic Valve function Mitral Valve Insufficiency - Grade 1 AORTIC ROOT: Angiographically normal COMPLICATIONS No Complications PROCEDURE MEDICATIONS Versed 1 mg IV Fentanyl 50 mcg IV Versed 1 mg IV Fentanyl 50 mcg IV Oxygen: 2 L/min via nasal cannula SUMMARY OF HEMODYNAMIC DATA Time AIR REST ECG 09:59:09 AO 100/62 (79) SA 10:26:34 AO 109/58 (84) 10:26:54 LV 113/1, 18 10:36:16 LV 114/4, 23 10:36:25 LV 108/6, 21 10:37:28 LV 118/3, 21 10:37:36 LVp 116/7, 28 10:37:44 AOp 112/68 (89) 10:37:50 Signed By Larry Anderson MD On 03/17/2019 17:23:19 Larry Anderson MD
== END 2019-03-17 16:05 | disposition short-term general hospital (02) | DRG 282 ==
LOC: ED 07:49 → PCU 08:09
PROVIDERS: Admitting Provider Family Medicine; Emergency Provider Emergency Medicine; Family Provider Family Medicine; PCP Family Medicine; Visit Provider Family Medicine
DX: I21.4 Non-ST elevation (NSTEMI) myocardial infarction (principal); I10 Essential (primary) hypertension; I25.10 Atherosclerotic heart disease of native coronary artery without angina pectoris; F17.210 Nicotine dependence, cigarettes, uncomplicated; E11.9 Type 2 diabetes mellitus without complications; E78.00 Pure hypercholesterolemia, unspecified; Z89.611 Acquired absence of right leg above knee; Z89.612 Acquired absence of left leg above knee; Z82.49 Family history of ischemic heart disease and other diseases of the circulatory system; Z79.84 Long term (current) use of oral hypoglycemic drugs
CPT/HCPCS: 71045; 80048; 82962; 84484; 85025; 93005; 93458; 99152; 99153; 99285; 99406; J7030; Q9967; C1769; C1894